=== PATIENT | female | born 1945 | race Caucasian/White ===

== ENCOUNTER 2023-09-08 13:50 | Emergency (ER) | payer OTHER | END 2023-09-08 14:27 | disposition left against medical advice (07) | LOC: JER 13:50 | DX: R55 Syncope and collapse (principal) | CPT/HCPCS: 99283-25 ==

== ENCOUNTER 2024-03-20 09:05 | Emergency (ER) | payer OTHER ==
[2024-03-20] MEDS ORDERED: ACETAMINOPHEN 325 MG TABLET (FP) ONE (09:24)
[2024-03-20] MEDS ORDERED: METHOCARBAMOL 500 MG TABLET ONE (09:24)
[2024-03-20] MEDS ORDERED: LIDOCAINE 5% TOPICAL PATCH ONE (09:24)
[2024-03-20 09:25] VITALS: RESP 20; TEMP 98.2; BMI 19.6
[2024-03-20] MEDS: LIDOCAINE 5% TOPICAL PATCH TP ONE (09:26)
[2024-03-20] MEDS: METHOCARBAMOL 500 MG TABLET PO ONE (09:26)
[2024-03-20] MEDS: ACETAMINOPHEN 325 MG TABLET (FP) PO ONE (09:26)
[2024-03-20 11:03] VITALS: BP 151/73; PULSE 86
== END 2024-03-20 11:27 | disposition home or self-care (01) ==
LOC: FER 09:05
DX: M25.551 Pain in right hip (principal); M79.18 Myalgia, other site
CPT/HCPCS: 73502-TC-RT-FY; 99283-25